=== PATIENT | male | born 1970 ===

== ENCOUNTER 2019-03-23 19:46 | Emergency (ER) | payer OTHER ==
[2019-03-23] MEDS ORDERED: MORPHINE IV ONE (21:35)
[2019-03-23] MEDS ORDERED: TORADOL IV ONE (21:35)
[2019-03-23] MEDS ORDERED: ZOFRAN IV ONE (21:35)
[2019-03-23 22:30] LABS: Basophils % (Auto) 0.2 % (0.0-1.8); Eosinophils % (Auto) 0.3 % (0.0-4.3); Hematocrit 42.4 % (35.5-45.6); Hemoglobin 14.8 gm/dl (11.8-15.2); Lymphocytes # (Auto) 2.7 K/mm3 (1.2-5.4); Lymphocytes % (Auto) 24.3 % (13.4-35.0); Mean Corpuscular HGB Conc 35 % (32-34); Mean Corpuscular Volume 94 fl (84-94); Monocytes # (Auto) 1.3 K/mm3 (0.0-0.8); Platelet Count 173 K/mm3 (140-440); Red Blood Count 4.53 M/mm3 (3.65-5.03); Red Cell Distribution Width 12.8 % (13.2-15.2)
--- NOTE | 2019-03-23 22:38 | Emergency Department Report ---
ED General Adult HPI - General Chief complaint: Chest Pain Stated complaint: CHEST PAIN AND ABDOMINAL PAIN Time Seen by Provider: 03/23/19 21:30 Source: patient, family Mode of arrival: Ambulatory Limitations: No Limitations - History of Present Illness Initial comments: Patient is a 48-year-old male with no stating past medical history who is complaining of bilateral mid back pain has been present for the last 4 days. Patient states it hurts to move as well as to breathe cough and talk. Patient states is a spasm-like pain that hits and is a 10 out of 10 in severity at is worse. Patient also feels as though his heart is racing and he feels the way you would feel if he were very scared. He denies any shortness of breath fevers chills at this time. Patient initially was thinking that this was secondary to some heavy lifting however the patient's pain is getting considerably worse. - Related Data Previous Rx's Medication Instructions Recorded Last Taken Type Docusate Sodium [Colace] 100 mg PO BID #20 capsule 03/24/19 Unknown Rx Ibuprofen [Motrin 800 MG tab] 800 mg PO Q8HR PRN #10 tablet 03/24/19 Unknown Rx methOCARBAMOL [Robaxin TAB] 500 mg PO Q6H PRN #14 tablet 03/24/19 Unknown Rx traMADol [Ultram] 50 mg PO Q6HR PRN #12 tablet 03/24/19 Unknown Rx Allergies Allergy/AdvReac Type Severity Reaction Status Date / Time No Known Allergies Allergy Verified 03/23/19 22:52 ED Review of Systems ROS: Stated complaint: CHEST PAIN AND ABDOMINAL PAIN Other details as noted in HPI Comment: All other systems reviewed and negative ED Past Medical Hx - Medications Home Medications: Home Medications Medication Instructions Recorded Confirmed Last Taken Type Docusate Sodium [Colace] 100 mg PO BID #20 capsule 03/24/19 Unknown Rx Ibuprofen [Motrin 800 MG tab] 800 mg PO Q8HR PRN #10 tablet 03/24/19 Unknown Rx methOCARBAMOL [Robaxin TAB] 500 mg PO Q6H PRN #14 tablet 03/24/19 Unknown Rx traMADol [Ultram] 50 mg PO Q6HR PRN #12 tablet 03/24/19 Unknown Rx ED Physical Exam - General Limitations: No Limitations General appearance: alert, anxious, in distress - Head Head exam: Present: atraumatic, normocephalic - Eye Eye exam: Present: normal appearance, PERRL, EOMI - ENT ENT exam: Present: mucous membranes moist - Neck Neck exam: Present: normal inspection - Respiratory Respiratory exam: Present: normal lung sounds bilaterally. Absent: respiratory distress, wheezes, rales, rhonchi - Cardiovascular Cardiovascular Exam: Present: normal rhythm, tachycardia. Absent: systolic murmur, diastolic murmur, rubs, gallop - GI/Abdominal GI/Abdominal exam: Present: soft, normal bowel sounds. Absent: distended, tenderness, guarding, rebound - Rectal Rectal exam: Present: deferred - Extremities Exam Extremities exam: Present: normal inspection - Back Exam Back exam: Present: normal inspection, tenderness, CVA tenderness (R), CVA tenderness (L) - Neurological Exam Neurological exam: Present: alert, oriented X3 - Psychiatric Psychiatric exam: Present: normal affect, normal mood - Skin Skin exam: Present: warm, dry, intact, normal color. Absent: rash ED Course Vital Signs 03/23/19 03/23/19 03/23/19 20:08 22:47 23:00 Temperature 99.8 F H 98.3 F Pulse Rate 116 H 84 83 Respiratory 18 19 19 Rate Blood Pressure 152/101 142/92 126/87 Blood Pressure 142/92 [Left] O2 Sat by Pulse 96 95 93 Oximetry 03/23/19 03/24/19 03/24/19 23:31 00:00 00:31 Temperature Pulse Rate 91 H 97 H 78 Respiratory 18 17 13 Rate Blood Pressure 142/92 141/100 141/100 Blood Pressure [Left] O2 Sat by Pulse 94 95 96 Oximetry 03/24/19 01:00 Temperature Pulse Rate 78 Respiratory 13 Rate Blood Pressure 130/93 Blood Pressure [Left] O2 Sat by Pulse 94 Oximetry ED Medical Decision Making - Lab Data Result diagrams: 03/23/19 22:05 03/23/19 22:05 - EKG Data -: EKG Interpreted by In - EKG Data 03/23/19 22:37 EKG shows sinus tachycardia rate of 108 axis is normal intervals are normal there are no ST segment elevations or depressions present. Possible LVH. Time of interpretation 2030 - Radiology Data CTA CHEST WITH IV CONTRAST INDICATION: pleuitic CP with tachycard and elev DDimer. TECHNIQUE: Axial CT images were obtained through the chest after injection of IV contrast. 3 plane MIP reconstructions were produced. All CT scans at this location are performed using CT dose reduction for ALARA by means of automated exposure control. COMPARISON: None available. FINDINGS: Pulmonary Arteries: No pulmonary emboli. Thoracic Aorta: No acute abnormality. Heart: Normal. Coronary Arteries: No significant calcification. Lungs: There are atelectatic changes in the bases. Lungs are otherwise clear. Pleura: There is a trace amount of left pleural fluid. No pneumothorax. Lymph Nodes: No significant adenopathy. Additional Findings: None. Upper Abdomen: No acute findings. Skeletal Structures: No significant osseous abnormality. IMPRESSION: 1. No CT evidence for pulmonary embolism. 2. Trace left pleural fluid. Bibasilar atelectasis. Signer Name: Michel Franklin MD Signed: 03/24/2019 1:13 AM Workstation Name: [id number] Transcribed By: DEVORA Dictated By: Michel Franklin MD Electronically Authenticated By: Michel Franklin MD Signed Date/Time: 03/24/19112 DD/ 9 CT ABDOMEN AND PELVIS WITHOUT IV CONTRAST INDICATION: bilateral flank pain. COMPARISON: None available. TECHNIQUE: All CT scans at this facility use dose modulation, automated exposure control, iterative reconstruction or weight based dosing, when appropriate, to reduce radiation dose to as low as reasonably achievable. FINDINGS: Lung Bases: There is a trace left pleural effusion. Atelectatic changes are noted in the bases. Skeletal System: No acute abnormality. ABDOMEN: Liver: Normal. Gallbladder: Contracted. Bile Ducts: Normal. Pancreas: Normal. Spleen: Normal. Adrenals: Normal. Right Kidney: There is a lobulated, largely exophytic 3 cm cyst arising from the anteromedial cortex of the right kidney on axial image 86. Given noncontrast technique, the right kidney is otherwise unremarkable. Left Kidney: Normal. Stomach and Bowel: Normal. Lymph Nodes: No significant adenopathy. Aorta: No significant abnormality. Additional Findings: None. PELVIS: Colon: Normal aside from mild constipation.. Urinary Bladder and Distal Ureters: Normal. Appendix: Normal. Lymph Nodes: No significant adenopathy. Additional Findings: Prostate is enlarged. IMPRESSION: 1. No nephrolithiasis or hydronephrosis. 2. Lobulated 3 cm right renal cyst. This could be adjacent contiguous cysts. 3. Constipation. 4. Trace left pleural effusion. 5. Enlarged prostate. Signer Name: Michel Franklin MD Signed: 03/23/2019 11:13 PM Workstation Name: [id number] Transcribed By: DEVORA Dictated By: Michel Franklin MD Electronically Authenticated By: Michel Franklin MD Signed Date/Time: 03/23/198 DD/ 08 TD/TT: - Medical Decision Making Patient is a 48-year-old gentleman who is presenting with bilateral upper back pain that he states is painful when he takes deep breath and when he coughs. Patient did have a slightly elevated d-dimer. CTA of the chest was negative for pulmonary embolus. Patient also with chest pain and sensation that he feels very anxious. This is most likely secondary to pain. Troponin is negative. CT of the abdomen and pelvis shows no evidence of obstructive uropathy. Patient likely with muscle spasm of the back. Patient be discharged home. Pain was controlled here in emergency department. Critical care attestation.: If time is entered above; I have spent that time in minutes in the direct care of this critically ill patient, excluding procedure time. ED Disposition Clinical Impression: Muscle spasm Acute thoracic myofascial strain Qualifiers: Encounter type: initial encounter Qualified Code(s): S29.019A - Strain of muscle and tendon of unspecified wall of thorax, initial encounter Constipation Qualifiers: Constipation type: slow transit constipation Qualified Code(s): K59.01 - Slow transit constipation Disposition: DC-01 TO HOME OR SELFCARE Is pt being admited?: No Does the pt Need Aspirin: No Condition: Stable Instructions: Muscle Strain (ED), Constipation (ED), High Fiber Diet (ED) Referrals: ANGELES FARMER MD [Primary Care Provider] - 3-5 Days
[2019-03-23 22:44] LABS: BUN/Creatinine Ratio 15; Blood Urea Nitrogen 16 mg/dL (9-20); Calcium 9.1 mg/dL (8.4-10.2); Hemolysis Index 13
--- NOTE | 2019-03-23 23:17 | Cat Scan Report ---
CT ABDOMEN AND PELVIS WITHOUT IV CONTRAST INDICATION: bilateral flank pain. COMPARISON: None available. TECHNIQUE: All CT scans at this facility use dose modulation, automated exposure control, iterative reconstructi on or weight based dosing, when appropriate, to reduce radiation dose to as low as reasonably achieva ble. FINDINGS: Lung Bases: There is a trace left pleural effusion. Atelectatic changes are noted in the bases. Skeletal System: No acute abnormality. ABDOMEN: Liver: Normal. Gallbladder: Contracted. Bile Ducts: Normal. Pancreas: Normal. Spleen: Normal. Adrenals: Normal. Right Kidney: There is a lobulated, largely exophytic 3 cm cyst arising from the anteromedial cortex of the right kidney on axial image 86. Given noncontrast technique, the right kidney is otherwise unr emarkable. Left Kidney: Normal. Stomach and Bowel: Normal. Lymph Nodes: No significant adenopathy. Aorta: No significant abnormality. Additional Findings: None. PELVIS: Colon: Normal aside from mild constipation.. Urinary Bladder and Distal Ureters: Normal. Appendix: Normal. Lymph Nodes: No significant adenopathy. Additional Findings: Prostate is enlarged. IMPRESSION: 1. No nephrolithiasis or hydronephrosis. 2. Lobulated 3 cm right renal cyst. This could be adjacent contiguous cysts. 3. Constipation. 4. Trace left pleural effusion. 5. Enlarged prostate. Signer Name: Michel Franklin MD Signed: 03/23/2019 11:13 PM Workstation Name: [id number]
[2019-03-23 23:59] LABS: Bilirubin,Urine NEG (Negative); Blood,Urine NEG (Negative); Color,Urine Yellow (Yellow); Mucus,Urine FEW /HPF; Protein,Urine <15 mg/dL mg/dL (Negative); Urobilinogen,Urine < 2.0 mg/dL (<2.0)
[2019-03-24 01:12] VITALS: BP 130/93
--- NOTE | 2019-03-24 01:17 | Cat Scan Report ---
CTA CHEST WITH IV CONTRAST INDICATION: pleuitic CP with tachycard and elev DDimer. TECHNIQUE: Axial CT images were obtained through the chest after injection of IV contrast. 3 plane MIP reconstru ctions were produced. All CT scans at this location are performed using CT dose reduction for ALARA b y means of automated exposure control. COMPARISON: None available. FINDINGS: Pulmonary Arteries: No pulmonary emboli. Thoracic Aorta: No acute abnormality. Heart: Normal. Coronary Arteries: No significant calcification. Lungs: There are atelectatic changes in the bases. Lungs are otherwise clear. Pleura: There is a trace amount of left pleural fluid. No pneumothorax. Lymph Nodes: No significant adenopathy. Additional Findings: None. Upper Abdomen: No acute findings. Skeletal Structures: No significant osseous abnormality. IMPRESSION: 1. No CT evidence for pulmonary embolism. 2. Trace left pleural fluid. Bibasilar atelectasis. Signer Name: Michel Franklin MD Signed: 03/24/2019 1:13 AM Workstation Name: [id number]
== END 2019-03-24 01:45 | disposition home or self-care (01) ==
LOC: ED 19:46
DX: S29.019A Strain of muscle and tendon of unspecified wall of thorax, initial encounter (principal); M62.838 Other muscle spasm; K59.01 Slow transit constipation; X58.XXXA Exposure to other specified factors, initial encounter; Y93.89 Activity, other specified; Y92.89 Other specified places as the place of occurrence of the external cause; Y99.8 Other external cause status
CPT/HCPCS: 36415; 71275; 74176; 80048; 81001; 84484; 85025; 85379; 93005; 93010; 96374; 96375; 99284; J1885; J2270; J2405; Q9967